=== PATIENT | female | born 1990 | race African-American/Black ===

== ENCOUNTER 2023-02-27 03:59 | Inpatient (IN) | payer OTHER, SELFPAY ==
[2023-02-27] MEDS ORDERED: hydrALAZINE 20 MG/ML VIAL SLOW IVP PRN ×2 (06:23→14:15)
[2023-02-27] MEDS ORDERED: Diphenoxylate HCl/Atropine Tablet PO PRN ×2 (06:23)
[2023-02-27] MEDS ORDERED: Tranexamic Acid 1,000 MG/10 ML VIAL IVP PRN (06:23)
[2023-02-27] MEDS ORDERED: Misoprostol 200 MCG TAB PR PRN (06:23)
[2023-02-27] MEDS ORDERED: Methylergonovine 0.2 MG/ML VIAL IM PRN (06:23)
[2023-02-27] MEDS ORDERED: Promethazine HCl 25 MG/ML VIAL IM PRN (06:23)
[2023-02-27] MEDS ORDERED: Ondansetron PF 4 MG/2 ML Vial IVP PRN (06:23)
[2023-02-27] MEDS ORDERED: HYDROcodone/Acetaminophen 5/325 mg Tablet PO PRN ×2 (06:23)
[2023-02-27] MEDS ORDERED: Lidocaine 1% (PF) 30 ML VIAL SC PRN (06:23)
[2023-02-27] MEDS ORDERED: Ibuprofen 800 MG TAB PO PRN (06:23)
[2023-02-27] MEDS ORDERED: Carboprost 250 MCG/ML AMP IM PRN (06:23)
[2023-02-27] MEDS ORDERED: fentaNYL 50 mcg/mL 1 mL Vial SLOW IVP PRN (06:23)
[2023-02-27] MEDS ORDERED: Penicillin G Potassium 5 MILL.UNITS in Sodium Chloride 0.9% 100 ML IVPB SCH (06:30)
[2023-02-27] MEDS ORDERED: NS w/ Oxytocin 30 units 500 ML IV SCH ×2 (06:30)
[2023-02-27 08:27] LABS: Hematocrit 31.8 % (34.9-44.5); Hemoglobin 10.4 g/dL (12.0-15.5); Mean Corpuscular HGB CONC 32.7 g/dL (32.0-36.0); Mean Corpuscular Hemoglobin 27.3 pg (27.0-33.0); Mean Corpuscular Volume 83.5 fl (81.6-98.3); Mean Platelet Volume 11.5 fl (7.4-10.4); Platelet Count 235 10x3/uL (150-450); RBC Distribution Width 13.6 % (11.5-14.5); Red Blood Cell (RBC) Count 3.81 10x6/uL (3.90-5.03); White Blood Cell (WBC) Count 7.6 10x3/uL (3.5-10.5)
[2023-02-27] MEDS: Lactated Ringer's 1,000 ML IV SCH ×3 (08:29→23:37)
[2023-02-27 08:53] LABS: HBSAg Index 0.16 S/CO (0-0.99); Hep B Surf Ag - L&D Non-Reactive S/CO (NonReactive); Syphilis Antibody Nonreactive (Nonreactive); Syphilis Antibody Index 0.03 S/CO (<1.00 Non-Reactive)
[2023-02-27] MEDS ORDERED: Benzocaine-Menthol 82.5 ML CAN TOP PRN (14:15)
[2023-02-27] MEDS ORDERED: traMADol HCl 50 MG TAB PO PRN (14:15)
[2023-02-27] MEDS ORDERED: Bisacodyl 10 MG SUPP PR PRN (14:15)
[2023-02-27] MEDS ORDERED: Milk Of Magnesia 30 ML UDCUP PO PRN (14:15)
[2023-02-27] MEDS ORDERED: Preparation H Ointment 28 GM TUBE PR PRN (14:15)
[2023-02-27] MEDS ORDERED: Lanolin Ointment 7 GM TUBE TOP PRN (14:15)
[2023-02-27] MEDS ORDERED: Boostrix 0.5 ML (Tdap) VIAL (>/=7 yrs of age) IM ONE (14:15)
[2023-02-27] MEDS: Penicillin G 2.5 MILL.units 2.5 MILL.UNITS in Premix Bag 1 BAG IVPB SCH ×3 (14:20→23:36)
[2023-02-27] MEDS: Acetaminophen 500 MG TAB PO PRN ×2 (15:19→23:34)
[2023-02-27] MEDS: Ibuprofen 800 MG TAB PO SCH (22:22)
[2023-02-27] MEDS: Ferrous Sulfate 325 MG TAB PO SCH (23:14)
[2023-02-27] MEDS: Docusate 100 MG CAP PO SCH (23:34)
[2023-02-28 04:26] VITALS: BMI 29.0
[2023-02-28] MEDS: Ibuprofen 800 MG TAB PO SCH ×2 (05:30→13:53)
[2023-02-28] MEDS: Ferrous Sulfate 325 MG TAB PO SCH ×2 (07:32→16:56)
[2023-02-28 07:57] VITALS: BP 103/60; TEMP 97.5
[2023-02-28] MEDS: Docusate 100 MG CAP PO SCH (08:56)
[2023-02-28] MEDS ORDERED: Prenatal Vitamin 1 TAB PO SCH (09:00)
== END 2023-02-28 17:10 | disposition home or self-care (01) | DRG 807 ==
LOC: CSHLD 03:59 → CSHPP 22:45
PROVIDERS: ADMIT Obstetrics & Gynecology; ATTEND Obstetrics & Gynecology
PROC: 10E0XZZ Delivery of Products of Conception, External Approach (ICD-10-PCS; principal; 2023-02-27)
PROC: 0KQM0ZZ Repair Perineum Muscle, Open Approach (ICD-10-PCS; 2023-02-27)
DX: O99.824 Streptococcus B carrier state complicating childbirth (principal); Z37.0 Single live birth; O70.1 Second degree perineal laceration during delivery; Z3A.39 39 weeks gestation of pregnancy
CPT/HCPCS: 85027; 86780; 86850; 86900; 86901; 87340; J2210; J2540; J2590; J3490; J7120